=== PATIENT | female | born 1965 | race Caucasian/White ===

== ENCOUNTER 2021-11-20 19:04 | Emergency (ER) | payer OTHER, SELFPAY ==
[2021-11-20 19:13] VITALS: BP 136/84; PULSE 84; RESP 16; TEMP 36.1; O2SAT 100
--- NOTE | 2021-11-20 19:28 | ED.SKABFB ---
HPI - Skin/Abscess/Foreign Bdy General Chief complaint: Skin/Abscess/Foreign Body Stated complaint: Insect Bite middle of Back Time Seen by Provider: 11/20/21 19:25 Source: patient Mode of arrival: ambulatory Limitations: no limitations History of Present Illness HPI narrative: Ms. Neville is a 56-year-old female patient presenting to the clinic today with complaints of possible brown recluse bite to her mid back. She reports she first noticed this yesterday and had taken a picture. She reports the area is nonpainful but very itchy Related Data Home Medications Medication Instructions Recorded Confirmed No Home Medications 11/20/21 11/20/21 Allergies Allergy/AdvReac Type Severity Reaction Status Date / Time No Known Allergies Allergy Mild Verified 11/20/21 19:09 Review of Systems Review of Systems: Pertinent positives per HPI. Patient denies any fever, chills, rash, headache, visual changes, dizziness, cough, runny nose, sore throat, shortness of breath, chest pain, palpitations, nausea, vomiting, diarrhea, constipation, abdominal pain, or any urinary issues. PMFSH Comments At the time of my signature, I reviewed and agree with the nursing past medical, surgical, social, and family history. There is no relevant family history pertinent to the patient complaint. Exam Narrative: General: Well-developed, well nourished, in no apparent distress Head: Normocephalic, atraumatic. Cardio: Regular rate and rhythm, s1 and s2 normal, no murmur appreciated. Resp: Clear to auscultation bilaterally, no rhonchi, rales, wheezing or rubs. Integumentary: [place], warm, and dry, localized insect bite to the left upper mid back that has a scab center with mild induration and localized redness-nonpainful or fluctuant to palpation Course Course Emergency Course: Portions of this record may have been created with voice recognition software. Level of Care: Express Care Visit Vital Signs Vital signs: Vital Signs Temperature 36.1 C L 11/20/21 19:13 Pulse Rate 84 11/20/21 19:13 Respiratory Rate 16 11/20/21 19:13 Blood Pressure 136/84 11/20/21 19:13 Pulse Oximetry 100 11/20/21 19:13 Oxygen Delivery Room Air 11/20/21 19:13 Temperature 36.1 C L 11/20/21 19:13 Pulse Rate 84 11/20/21 19:13 Respiratory Rate 16 11/20/21 19:13 Blood Pressure 136/84 11/20/21 19:13 Pulse Oximetry 100 11/20/21 19:13 Oxygen Delivery Room Air 11/20/21 19:13 Vital signs reviewed MDM - Skin/Abscess/Foreign Bdy MDM Narrative Medical decision making narrative: At the time of visit patient is resting comfortably on the exam table. I suspect that this is an insect bite likely mosquito bite. Supportive measures were discussed with the patient she voiced understanding of discharge instructions and agrees to treatment plan. Differential Diagnosis Differential diagnosis: Likely abscess of skin or subcutaneous tissue, cellulitis, eczema, insect bites and contact dermatitis Discharge Plan Discharge Clinical Impression: Insect bites Patient Disposition: Home, Self-Care Condition: Stable Instructions: Antibiotic Form, Insect Bite or Sting (ED), General Allergic Reaction (ED) Additional Instructions: This appears to be a localized allergic reaction from an insect bite May apply hydrocortisone cream to the affected area May take Benadryl 25-50mg as needed for itching Follow-up with your PCP in 3 to 5 days if symptoms persist or sooner if they worsen Prescriptions: No Action No Home Medications Follow-up/Referrals: Sonja Ibarra MD [Primary Care Provider] - Time of Disposition: 19:32 Quality NIHSS Nursing Documentation ED NIHSS nursing documentation: reviewed/agree
== END 2021-11-20 19:35 | disposition home or self-care (01) ==
PROVIDERS: Emergency Provider Nurse Practitioner Family; PCP Family Medicine
DX: S20.462A Insect bite (nonvenomous) of left back wall of thorax, initial encounter (principal); W57.XXXA Bitten or stung by nonvenomous insect and other nonvenomous arthropods, initial encounter
CPT/HCPCS: 99211; G0463